=== PATIENT | male | born 1985 | race Two or more races ===

== ENCOUNTER 2019-09-24 07:29 | Emergency (ER) | payer OTHER ==
[~2019-09-24] VITALS: Ht 172.7 cm; Wt 80.0 kg
--- NOTE | 2019-09-24 07:40 | NUR ---
EKG DONE AT BEDSIDE BY EMT.
--- NOTE | 2019-09-24 07:41 | NUR ---
GHISLAINE. REPORT RECEIVED FROM EMS. PT C/O CP/SORE THROAT/WALSH X 1 DAY. HOT PACK PLACEMENT REDUCES CP LEVEL PER PT. 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 PT'S AOX4, BUT PT DOESN'T WANNA TALK D/T DRY MOUTH. ALL MONITORS IN PLACE. CALL LIGHT WITHIN REACH. PA AT BEDSIDE TO EVALUATE AT THIS TIME.
[2019-09-24] MEDS ORDERED: FAMOTIDINE 20 MG/2 ML ONE (07:47)
[2019-09-24] MEDS ORDERED: ONDANSETRON 2MG/ML, 2ML ONE (07:47)
--- NOTE | 2019-09-24 07:53 | NUR ---
PT MEDICATED PER EMAR. PT TOLERATED WELL. NS INFUSING AT THIS TIME.
--- NOTE | 2019-09-24 07:58 | NUR ---
XRAY IN ROOM. WARM BLANCKET PROVIDED.
[2019-09-24] MEDS ORDERED: ONDANSETRON 2MG/ML, 2ML IVPush ONE (08:00)
[2019-09-24] MEDS ORDERED: PLEASE ENTER ALLERGIES MC SCH (08:00)
[2019-09-24] MEDS ORDERED: SODIUM CHLORIDE FLUSH 10ML SYR IVF ONE (08:00)
[2019-09-24] MEDS ORDERED: SODIUM CHLORIDE 0.9% 1,000ML IVBOLUS ONE (08:00)
[2019-09-24] MEDS ORDERED: FAMOTIDINE 20 MG/2 ML IVPush ONE (08:00)
[2019-09-24 08:39] LABS: MEAN CORPUSCULAR HEMOGLOBIN 19.1 pg (27.5-34.5); MEAN CORPUSCULAR HGB CONC 30.3 g/dL (33.2-36.2); MEAN CORPUSCULAR VOLUME 62.9 fL (81-97); MEAN PLATELET VOLUME 6.6 fL (7.4-10.4); PLATELET COUNT 720 x10^3/uL (130-400); RED BLOOD COUNT 3.96 x10^6/uL (4.38-5.82); RED CELL DISTRIBUTION WIDTH 20.1 % (9.4-14.8)
[2019-09-24 08:53] LABS: ALANINE AMINOTRANSFERASE 22 U/L (12-78); ALBUMIN 2.9 g/dL (3.4-5.0); ANION GAP 6 mmol/L (5-15); CALCIUM 8.6 mg/dL (8.5-10.1); CHLORIDE 105 mmol/L (98-107); CREATININE 0.87 mg/dL (0.7-1.3)
--- NOTE | 2019-09-24 08:57 | NUR ---
PT RESTING IN [facility]. ALL MONITORS IN PLACE. CALL LIGHT WITHIN REACH. RESPS EVEN AND UNLABORED.
[2019-09-24 08:58] LABS: ALKALINE PHOSPHATASE 98 U/L (45-117); BILIRUBIN,TOTAL 0.3 mg/dL (0.2-1.0); TOTAL PROTEIN 7.7 g/dL (6.4-8.2); TROPONIN I < 0.015 ng/mL (0.000-0.045)
[2019-09-24 09:22] LABS: MD YES
[2019-09-24 09:33] LABS: ANISOCYTOSIS 1+; EOS#(MANUAL) 0.31 x10^3/uL (0.0-0.4); EOS% (MANUAL) 2 % (1-7); HYPOCHROMIA 2+; LYMPH#(MANUAL) 1.09 x10^3/uL (1-3.4); LYMPHS% (MANUAL) 7 % (22-44); MICROCYTOSIS 2+; MONOS#(MANUAL) 0.47 x10^3/uL (0.3-2.7); MONOS% (MANUAL) 3 % (2-9); SEG#(MANUAL) 13.73 x10^3/uL (1.8-6.8); SEGS% (MANUAL) 88 % (42-75)
--- NOTE | 2019-09-24 09:33 | NUR ---
Break RN note: Pt resting in bed with eyes closed, resp even and unlabored. Pt awakens to this RN calling his name, candacehelen, then falls back asleep. All monitors remain in palce, all safety measures observed.
[2019-09-24 09:34] LABS: POLYCHROMASIA 1+
[2019-09-24 09:35] LABS: <PLATELET ESTIMATE> INCREASED; TARGET CELLS 1+
[2019-09-24 09:36] LABS: SMALL PLATELETS 1+
--- NOTE | 2019-09-24 09:57 | NUR ---
URINAL AT BEDSIDE AT THIS TIME.
--- NOTE | 2019-09-24 10:28 | NUR ---
PT TO CT NOW.
[2019-09-24] MEDS ORDERED: ZIPRASIDONE 20 MG INJ IM ONE ×2 (10:30→10:49)
[2019-09-24] MEDS ORDERED: OMNIPAQUE 350 MG/ML, 100ML BOTTLE ONE (10:48)
[2019-09-24 10:51] VITALS: BP 131/82
--- NOTE | 2019-09-24 10:52 | NUR ---
PT BACK TO ROOM FROM CT.
--- NOTE | 2019-09-24 10:57 | NUR ---
PT MEDICATED PER EMAR. PT TOLERATED WELL.
--- NOTE | 2019-09-24 12:03 | NUR ---
Patient given discharge instructions and they have confirmed that they understand the instructions.
--- NOTE | 2019-09-24 12:29 | NUR ---
PT DOESN'T WANNA LEAVE THE ROOM. PA EXPLAINED ALL RESULTS. SECURITY PAGED.
== END 2019-09-24 12:04 | disposition home or self-care (01) ==
LOC: ED 11:58
DX: K21.9 Gastro-esophageal reflux disease without esophagitis (principal); R07.89 Other chest pain; D64.9 Anemia, unspecified; F14.10 Cocaine abuse, uncomplicated; Z72.9 Problem related to lifestyle, unspecified
CPT/HCPCS: 36415; 71045; 71260; 74177; 80053; 80307; 83690; 84484; 85025; 86850; 86900; 93005; 96372; 96374; 96375; 99284; J2405; J3486; J3490; J7030; Q9967